=== PATIENT | male | born 2000 | race Caucasian/White ===

== ENCOUNTER 2023-06-13 21:32 | Emergency (ER) | payer OTHER, SELFPAY ==
[2023-06-13 22:03] VITALS: BP 118/75; PULSE 66; RESP 18; TEMP 36.5; O2SAT 96; BMI 26.6
[2023-06-13] MEDS: Ondansetron ODT 4 MG TAB.RAPDIS TRANSLINGU (22:09)
--- NOTE | 2023-06-13 22:39 | MHC.EDTECH ---
Patient blood drawn and sent to lab ,flu/covid swab collected and sent to lab .
[2023-06-13 22:40] LABS: Basophils Percent Auto 0.3 % (0-2); Eosinophils Absolute Auto 0.2 X10*3/uL (0.0-0.4); Eosinophils Percent Auto 1.2 % (0-4); Hematocrit 49.3 % (42.0-52.0); Hemoglobin 17.7 g/dl (14.0-18.0); Imm Gran Abs Auto 0.03 X10*3/uL (0.00-0.03); Imm Gran Pct Auto 0.2 % (0.0-0.4); Lymphocytes Absolute Auto 0.4 X10*3/uL (1.2-4.9); Lymphocytes Percent Auto 3.1 % (20-40); MANUAL DIFF FLAG SCAN; Mean Corpuscular HGB Conc 35.9 g/dl (31.0-36.0); Mean Corpuscular Hemoglobin 31.9 pg (27.0-33.0); Mean Corpuscular Volume 88.8 fL (80.0-98.0); Mean Platelet Volume 9.2 fL (9.4-12.4); Monocytes Absolute Auto 0.5 X10*3/uL (0.1-1.2); Monocytes Percent Auto 3.8 % (2-11); Neutrophils Absolute Auto 11.2 x10*3/uL (2.0-8.3); Neutrophils Percent Auto 91.4 % (45-73); Platelet Count 207 X10*3/uL (160-400); Red Blood Count 5.55 X10*6/uL (4.60-5.80); SCAN SMEAR FLAG 1; White Blood Count 12.3 X10*3/uL (4.8-10.8)
[2023-06-13 22:53] LABS: Alanine Aminotransferase 25 U/L (0-40); Albumin Level 5.3 g/dL (3.5-5.0); Alkaline Phosphatase 61 U/L (39-117); Anion Gap 17 (12-20); Aspartate Amino Transferase 28 U/L (5-37); Blood Urea Nitrogen 21 mg/dL (9-16); Calcium 10.5 mg/dL (8.4-10.2); Carbon Dioxide 24 mmol/L (22-29); Chloride 104 mmol/L (96-108); Creatinine Clr Calc Pharmacy 96.8; Estimated Glomerular Filt Rate > 60; Glucose Random 126 mg/dL (60-115); Lipase 13 U/L (8-78); Potassium 4.2 mmol/L (3.3-5.1); Sodium 141 mmol/L (135-145); Total Protein 8.3 g/dL (6.5-8.0)
[2023-06-13 22:56] LABS: COVID-19 Test Negative (Negative); IDNOW Serial# 08D9AD1C; IDNOW Serial# 152EDE1D; Influenza A Negative (Negative); Influenza B2 Negative (Negative)
[2023-06-13 23:01] LABS: SLIDE REVIEW VERIFIED
--- NOTE | 2023-06-13 23:07 | ED.NAVMDI ---
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 earlier at 01:00 o'clock since 17:00 noticed diarrhea and vomiting multiple times about 20 each with abdominal cramping another co-worker was sick 2 days ago no upper respiratory symptoms, no fever no chills stool is watery feels weak Related Data Previous Rx's Medication Instructions Recorded loperamide 2 mg tablet (Imodium 2 mg PO Q6H PRN loose stool #14 06/14/23 A-D) tabs ondansetron 4 mg disintegrating 4 mg PO Q6-8H PRN nausea and 06/14/23 tablet vomiting #10 tabs Allergies Allergy/AdvReac Type Severity Reaction Status Date / Time lentils Allergy Anaphylaxis Verified 06/13/23 22:03 tuna oil Allergy Anaphylaxis Verified 06/13/23 22:03 Review of Systems Review of Systems: Yes all other systems are reviewed and are negative [facility] Social History Social History Advance Directives: No Advance Directives Information Provided: No Physical Exam Vital Signs: Vital Signs: Last Vital Signs Temp 99.1 F 06/14/23 01:13 Pulse 94 06/14/23 01:13 Resp 16 06/14/23 01:13 BP 107/46 L 06/14/23 01:13 Pulse Ox 96 06/14/23 01:13 O2 Del Method Room Air 06/14/23 01:13 BMI result Body Mass Index 26.6 Appearance: Alert. Oriented X3. No acute distress. Eyes: No pallor or icterus ENT: Pharynx normal. Oral Mucosa moist Neck: Normal inspection. Neck supple. CVS: Normal heart rate and rhythm. Pulses normal. Respiratory: No respiratory distress. Equal air entry bilateral, Abdomen: Soft and nontender. Bowel sounds are present, no mass palpable, no CVA tenderness Skin: Skin warm and dry. Normal skin color. Normal skin turgor. Extremities: No lower extremity edema. No calf tenderness Neuro: Oriented X 3. Medications Administered Discontinued Medications Generic Name Dose Route Start Last Admin Trade Name Freq PRN Reason Stop Dose Admin Diphenhydramine HCl 25 mg 06/14/23 00:47 06/14/23 00:52 Diphenhydramine Hcl 50 Mg/Ml Vial IVPUSH 06/14/23 00:48 25 mg ONCE ONE Administration Sodium Chloride 1,000 mls @ 999 mls/hr 06/13/23 23:18 06/14/23 00:54 Ns IV 06/14/23 00:18 999 mls/hr .Q1H1M ONE Administration Ondansetron HCl 4 mg 06/13/23 22:07 06/13/23 22:09 Ondansetron Odt 4 Mg Tab.Rapdis TRANSLINGU 06/13/23 22:08 4 mg ONCE ONE Administration Ondansetron HCl 4 mg 06/13/23 23:18 06/14/23 00:40 Ondansetron Hcl 4 Mg/2 Ml Vial IVPUSH 06/13/23 23:19 4 mg ONCE ONE Administration Medical Decision Making Medical Decision Making [facility] Narrative: Patient has acute gastroenteritis likely food poisoning from Clostridium perfringens supportive treatment Patient started having few hives on the right arm after given IV Zofran will give Benadryl patient took p.o. Zofran without any allergic reaction 145am patient feeling much better now taking p.o. fluids but had 2 bowel movements in the ER Differential Diagnosis Differential Diagnoses: The differential diagnosis associated with the presentation includes Acute gastroenteritis/food poisoning/Clostridium perfringens induced gastroenteritis Admission/Observation Consideration of admission/observation: Escalation of care including admission/observation considered Lab Data [facility] Lab Attestation statement: I reviewed the patient's lab results. 06/13/23 22:35 06/13/23 22:35 Labs: Lab Results 06/13/23 Range/Units 22:35 WBC 12.3 H (4.8-10.8) X10*3/uL RBC 5.55 (4.60-5.80) X10*6/uL Hgb 17.7 (14.0-18.0) g/dl Hct 49.3 (42.0-52.0) % MCV 88.8 (80.0-98.0) fL MCH 31.9 (27.0-33.0) pg MCHC 35.9 (31.0-36.0) g/dl RDW 12.0 (11.0-16.0) % Plt Count 207 (160-400) X10*3/uL MPV 9.2 L (9.4-12.4) fL Immature Gran % (Auto) 0.2 (0.0-0.4) % Neut % (Auto) 91.4 H (45-73) % Lymph % (Auto) 3.1 L (20-40) % [place] % (Auto) 3.8 (2-11) % Eos % (Auto) 1.2 (0-4) % Baso % (Auto) 0.3 (0-2) % Lymph # (Auto) 0.4 L (1.2-4.9) X10*3/uL [place] # (Auto) 0.5 (0.1-1.2) X10*3/uL Eos # (Auto) 0.2 (0.0-0.4) X10*3/uL Baso # (Auto) 0.0 (0.0-0.2) X10*3/uL Abs Immat Gran (auto) 0.03 (0.00-0.03) X10*3/uL Absolute Neuts (auto) 11.2 H (2.0-8.3) x10*3/uL Absolute Nucleated RBC 0.000 (0.0-0.012) X10*3/uL Nucleated RBC % (auto) 0.0 (0.0-0.2) /100WBC Smear Tech's Comments VERIFIED Sodium 141 (135-145) mmol/L Potassium 4.2 (3.3-5.1) mmol/L Chloride 104 (96-108) mmol/L Carbon Dioxide 24 (22-29) mmol/L Anion Gap 17 (12-20) BUN 21 H (9-16) mg/dL Creatinine 1.10 (0.5-1.4) mg/dL Estim Creat Clear Calc 96.8 Estimated GFR > 60 Random Glucose 126 H (60-115) mg/dL Calcium 10.5 H (8.4-10.2) mg/dL Total Bilirubin 3.0 H (0.0-1.0) mg/dL AST 28 (5-37) U/L ALT 25 (0-40) U/L Alkaline Phosphatase 61 (39-117) U/L Total Protein 8.3 H (6.5-8.0) g/dL Albumin 5.3 H (3.5-5.0) g/dL Lipase 13 (8-78) U/L COVID-19 ([facility]) Negative (Negative) COVID-19 Clin Com See Note Influenza Type A ([facility]) Negative (Negative) Influenza Type B ([facility]) Negative (Negative) Influenza A & B Note See Note Discharge Plan Discharge Clinical Impression: Gastroenteritis Patient Disposition: Home, Self-Care Instructions: Gastroenteritis (ED) Additional Instructions: Likely have symptoms from food poisoning , self-limiting and should get better within 24 hours Symptomatic treatment , take nausea medication and Imodium for severe diarrhea Drink plenty of fluids Report to the ER if not better Prescriptions: New loperamide [Imodium A-D] 2 mg tablet 2 mg PO Q6H PRN (Reason: loose stool) Qty: 14 0RF ondansetron 4 mg tablet,disintegrating 4 mg PO Q6-8H PRN (Reason: nausea and vomiting) Qty: 10 0RF
[2023-06-14] MEDS: ondansetron HCL 4 MG/2 ML VIAL IVPUSH (00:40)
--- NOTE | 2023-06-14 00:50 | PC.NURSE ---
Pt vomiting unable to tolerate po meds at this time. Plan of care ongoing. Provider aware.
[2023-06-14] MEDS: diphenhydrAMINE HCL 50 MG/ML VIAL 25 MG IVPUSH (00:52)
[2023-06-14] MEDS: 0.9 % Sodium Chloride 1,000 ML 999 ML IV (00:54)
--- NOTE | 2023-06-14 01:07 | PC.NURSE ---
Pt ca&ox4, no signs of distress. Pt denies sob, itchy, and swelling of throat. Pt medicated per jun. IV fluids started. Plan of care ongoing.
--- NOTE | 2023-06-14 01:10 | PC.NURSE ---
Pt having a reaction to the meds given. Provider anwer notified, provider in with pt Benadryl given and Iv removed. IV placed on other arm. Plan of care ongoing.
[2023-06-14 01:13] VITALS: BP 107/46; PULSE 94; RESP 16; TEMP 37.3; O2SAT 96
[2023-06-14] MEDS: Loperamide HCl 2 MG CAPSULE 4 MG PO (02:41)
--- NOTE | 2023-06-14 02:41 | PC.NURSE ---
Po meds given late as pt was vomiting and unable to take po meds.
--- NOTE | 2023-06-14 02:45 | PC.NURSE ---
Pt medicated per mar. Tolerated well. Pts spouse remains at bedside. Plan of care ongoing.
== END 2023-06-14 02:50 | disposition home or self-care (01) ==
PROVIDERS: Emergency Provider Internal Medicine
DX: K52.9 Noninfective gastroenteritis and colitis, unspecified (principal); Z11.52 Encounter for screening for COVID-19
CPT/HCPCS: 80053; 83690; 85025; 87502; 87635; 96361; 96374; 96375; 99283; 99284; J1200; J2405